=== PATIENT | female | born 2000 | race Caucasian/White ===

== ENCOUNTER 2021-05-17 07:29 | Inpatient (IN) ==
[2021-05-17] MEDS ORDERED: OXYTOCIN 30 UNITS/500 ML BAG IV PRN ×2 (07:39→07:41)
--- NOTE | 2021-05-17 07:48 | History & Physical Report ---
Date of Service May 17, 2021 Assessment & Plan (1) Encounter for induction of labor: Plan: 20 yo at EGA 39w1d by LMP, CHETAN 05/23 here for IOL. PNC of IUGR- EFW 14%, AC 9% on 05/06 -Admit to L&D -FHT Category 1 -Cuadra bulb placed 05/16 -Start pitocin -Epidural available on request -Expectant management, anticipate Admission and Anticipated Discharge Date Admission Date: May 17, 2021 History of Present Illness Chief Complaint: Induction of labor Primary Care Provider: NO PCP 20 yo at EGA 39w1d by LMP, CHETAN 05/23 here for IOL. +Good FM, +scant VB after cuadra bulb placed last night, denies LOF or ctns. Reports mild lower abdominal pressure, no nausea or vomiting. No headache, abdominal pain. Denies any complaints at present. States she had some anemia earlier in which resolved with iron supplements. Only takes PNV, no OTC medication. Has been attending OB appointments regularly. Flu vaccinated in 02/2021, was also COVID+ in 02/2021. PNC- IUGR that resolved with EFW 14% on 05/06 but AC of 9% OBHx- none GynHx- No STIs, regular cycles, menarche at 12 OB Labs: Blood Type B Positive 11/11/20 Antibody Screen NEGATIVE 11/11/20 Hemoglobin 10.0 g/dL (12.0-16.0) L 03/11/21 Hematocrit 28.9 % (37-47) L 03/11/21 Mean Corpuscular Volume 94.1 fL (80-100) 03/11/21 Platelet Count 270 K/uL (130-400) 03/11/21 Rubella IgG Antibody Immune (Immune) 11/11/20 Rapid Plasma Reagin Nonreactive (Nonreactive) 11/11/20 Hepatitis B Surface Antigen Neg (Neg) 11/11/20 HIV (1&2) Ab and P24 Ag, 4th Gener Neg (Neg) 11/11/20 Glucose 1 Hour 50 gm Load 132 mg/dl (70-130) H 12/09/20 OB Optional Labs: Chlamydia trachomatis RNA NOT DETECTED (NOT DETECTED) 11/11/20 Neisseria gonorrhoeae RNA NOT DETECTED (NOT DETECTED) 11/11/20 Thyroid Stimulating Hormone (TSH) 1.470 uIu/ml (0.300-4.500) 03/11/21 Allergies Allergy/AdvReac Type Severity Reaction Status Date / Time strawberry Allergy Hives Verified 05/16/21 19:28 Home Medications Medication Instructions Recorded Confirmed Type vit no.133-ferrous 1 tab PO DAILY 10/28/20 05/16/21 History fumarate 28 mg-folic acid 800 mcg tablet () Past Med/Surg History Medical History No significant medical problems Surgical History No significant past surgical history Family History Grandmother (Paternal) Pancreatic cancer Denies family history of Ovarian cancer Prostate cancer Breast cancer Colorectal cancer Social History Smoking Status: Never smoker Second Hand Exposure: No; Hx Alcohol Use: No Hx Substance Use: No Preferred Language: [place] Visual Impairment: No Limitations Hearing Ability: Normal Outside Rigger Required: No Beliefs That Will Affect Care: None marital status: marital status details: Rasta Child (22) [phone] Current Living Situation: Spouse Current Living Situation Comment: lives with . 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 Denies dyspnea, cough. Denies chest pain. Denies breast pain or discharge. Denies dysuria. Denies headache. Denies back pain. Physical Exam Physical Exam: General: Alert, oriented, no acute distress Cardiac: Regular rate and rhythm, normal S1, S2. No murmurs appreciated. Respiratory: Clear to auscultation b/l with good air flow entry, symmetric chest rise and fall. No wheezes or crackles. No increased work of breathing or accessory muscle use Abdomen: Gravid, soft, nontender. No guarding or CVA tenderness Skin: No rashes or lesions Extremities: Warm, dry, well-perfused with capillary refill <2s b/l. No lower extremity edema, erythema or swelling. Negative Janelle's sign b/l. Pelvic Exam per Dr. Monique Dilation: 3 Effacement: 75% Station: -2 FHR Baseline: 150 BPM Variability: Moderate Accelerations: Present Decelerations: Absent Supervising Physician Co-Signing Physician Notes Resident Physician Supervision Note: I interviewed and examined the patient. Discussed with Dr. Brennan and agree with findings and plan as documented in the note. Any exceptions or clarifications are listed here: 20 y/o G1 at 39 1/7 wga presents for IOL for FGR w/ AC 9%. Cuadra bulb fell out last evening, tolerated well. VSS, 3/75/-2 on exam. Will start pit, epidural PRN. GBS neg Documented By: Elsy Monique MD Resident Activity Tracking Resident Involvement: Resident Care Provided Care Provided: OB Delivery
[2021-05-17 08:02] LABS: Hematocrit (blood only) 28.7 % (37-47); Hemoglobin 9.5 g/dL (12.0-16.0); Mean Corpuscular Hemoglobin 29.2 pg (25-34); Mean Corpuscular Hgb Conc 33.1 g/dL (32-36); Mean Corpuscular Volume 88.3 fL (80-100); Mean Platelet Volume 10.4 fL (7.4-10.4); Platelet Count 207 K/uL (130-400); RDW Coefficient of Variation 13.6 % (11.5-14.5); RDW Standard Deviation 44.1 fL (36.4-46.3); Red Blood Count 3.25 M/uL (4.2-5.4); White Blood Count 9.34 K/uL (4.8-10.8)
[2021-05-17] MEDS: LACTATED RINGER'S 1,000 ML IV PRN ×2 (08:56→14:42)
--- NOTE | 2021-05-17 14:07 | Labor Progress Brief Note ---
Date of Service May 17, 2021 Subjective Feeling ctx a little more Assessment & Plan (1) Encounter for induction of labor: (2) Intrauterine growth restriction, antepartum: Plan: 20 y/o G1 at 39 1/7 wga presents for IOL for FGR VSS Fetus cat 1 Labor - pit at 14, now s/p arom, continue induction GBS neg Epidural PRN Admission and Anticipated Discharge Date Admission Date: May 17, 2021 Physical Exam Genitourinary: Manual OB Exam: + cervical dilation 4 cm, + cervical effacement 70%, + station -2 and + amniotic fluid (AROM clear) OB Exam Monitor Tracing: + external FHT monitor used, + external uterine monitor used (q3-4) and + category I (130/mod/+accel/-decel) Results & Data ([facility]) Vital Signs (Past 12 Hours) Vital Signs Temp Pulse Resp BP 05/17/21 13:15 113 H 123/84 05/17/21 11:05 92 H 120/67 05/17/21 10:05 93 H 127/77 05/17/21 09:03 98.2 F 136 H 20 119/83 05/17/21 08:14 98.2 F 93 H 20 132/87 Coding Level of Care Code None Diagnoses Encounter for induction of labor Z34.90 Intrauterine growth restriction, antepartum O36.5990
[2021-05-17] MEDS ORDERED: BUPIVACAINE 0.25% 30 ML VIAL ONE (14:36)
[2021-05-17] MEDS ORDERED: ePHEDrine sulfate 50 MG/ML AMP ONE (14:36)
[2021-05-17] MEDS ORDERED: fentaNYL citrate 100 MCG/2 ML VIAL ONE (14:36)
[2021-05-17] MEDS ORDERED: SODIUM CHLORIDE 0.9% INJ 10 ML VIAL ONE (14:36)
[2021-05-17] MEDS ORDERED: fentaNYL 2MCG/ML ROPIVACAINE 1.25MG/ML 100 ML BAG EPI ONE (14:37)
[2021-05-17] MEDS ORDERED: ONDANSETRON INJ 2 MG/ML 2 ML VIAL IV PRN (14:53)
[2021-05-17] MEDS ORDERED: fentaNYL 2MCG/ML ROPIVACAINE 1.25MG/ML 100 ML BAG EPI PRN (14:53)
[2021-05-17] MEDS ORDERED: diphenhydrAMINE 50 MG/ML VIAL IV PRN (14:53)
[2021-05-17] MEDS ORDERED: NALBUPHINE HCL INJ 10 MG/ML AMP IV PRN (14:53)
[2021-05-17] MEDS ORDERED: NALOXONE HCL 0.4 MG/1 ML VIAL/CARP IV PRN (14:53)
[2021-05-17] MEDS ORDERED: ePHEDrine sulfate 50 MG/ML AMP IV PRN (14:53)
[2021-05-17] MEDS ORDERED: NALOXONE HCL 1 MG in SODIUM CHLORIDE 0.9% 1000ML 1,000 ML IV PRN (14:53)
--- NOTE | 2021-05-17 15:01 | Anesthesiology Consultation ---
Date of Service May 17, 2021 Assessment & Plan Chart Review Chart Review: Patient NOT seen in Pre Admission Testing and Acceptable Risk for Labor Epidural Consults Requested none ASA ASA2 Proposed Anesthesia Anesthesia Type: Labor Epidural and CSE Risk / Benefits Reviewed With: PT / POA / Parent / Guardian, Accepts Plan and Informed Consent Obtained History Height/Weight Height: 5 ft 7 in Weight: 65.771 kg Allergies Allergy/AdvReac Type Severity Reaction Status Date / Time strawberry Allergy Hives Verified 05/16/21 19:28 Medications Home Medications Medication Instructions Recorded Confirmed Last Taken prenat.vits,arely,zpj-owtx-edcog 1 tab PO DAILY 05/17/21 05/17/21 05/16/21 21:00 Active Medications Generic Name Dose Route Start Last Admin Trade Name Freq PRN Reason Stop Dose Admin Lactated Ringer's 1,000 mls @ 125 mls/hr 05/17/21 07:39 05/17/21 14:42 Lr IV 05/19/21 07:38 999 mls/hr .Q8H PRN Administration L&D Protocol Protocol Oxytocin 30 units in 500 mls @ 14 mls/hr 05/17/21 07:41 05/17/21 13:18 Pitocin IV 05/19/21 07:40 0.84 units/hr .Q24H PRN 14 mls/hr Labor Induction/Augmentation Titration Protocol 0.84 UNITS/HR NPO Date Last Intake of Fluids: 05/17/21 Time Last Intake of Fluids: 14:00 Date Last Intake of Solids: 05/17/21 Time Last Intake of Solids: 08:00 Past Medical History Medical History No significant medical problems Exercise / Class Metabolic Activity II 4-5 Yardwork/Stairs/Walk up hill Past Family History Family History Grandmother (Paternal) Pancreatic cancer Denies family history of Ovarian cancer Prostate cancer Breast cancer Colorectal cancer Past Surgical History Surgical History No significant past surgical history Past Anesthesia History No Hx of Anesthesia Complications and No Family Hx of Anesthesia Complications History of PONV No Hx of PONV and History of PONV Social History Smoking Status: Never smoker Hx Alcohol Use: No Hx Substance Use: No substance use type: does not use Review of Systems no chest pain or sob Physical Exam Vital Signs Last Vital Signs Temp 36.8 C 05/17/21 09:03 Pulse 110 H 05/17/21 14:58 Resp 20 05/17/21 09:03 BP 123/84 05/17/21 13:15 Pulse Ox 99 05/17/21 14:58 ENMT Mouth: no TMJ abnormality Thyromental Distance: > or= 3.5 Finger Breadths Mallampati Class: II Neck normal visual inspection Respiratory normal respiratory effort Auscultation: lungs clear to auscultation bilaterally Cardiovascular Rate/Rhythm: regular rate and regular rhythm Musculoskeletal Spine: normal cervical ROM Neurologic moves all extremities Psychiatric Orientation: alert and oriented x 3 Testing Laboratory Results 05/17/21 07:46
--- NOTE | 2021-05-17 17:38 | Delivery Summary ---
Vaginal Delivery Summary Date of Service May 17, 2021 Vaginal Delivery Summary and 2nd Degree LAC PREOPERATIVE DIAGNOSIS: 1. Single intrauterine at 39 1/7 wga 2. growth restriction 3. Resolved polyhydramnios POSTOPERATIVE DIAGNOSIS: 1. Single intrauterine at 39 1/7 wga 2. growth restriction 3. Resolved polyhydramnios 4. Delivered PROCEDURE: 1. Normal spontaneous vaginal delivery. SURGEON: Elsy Monique MD ANESTHESIA: Epidural. ESTIMATED BLOOD LOSS: 300 mL FLUIDS: Continuous LR. URINE OUTPUT: None. COMPLICATIONS: None. CONDITION: Stable. INDICATIONS: 20 y/o G1 at 39 1/7 wga presented for IOL for FGR. has been complicated by FGR that initially resolved and then returned at last growth US on 05/06 showing AC 9%. Also had polyhydramnios earlier in but that resolved. She received a cuadra bulb last evening which fell out. This morning, she was 3cm and started on pitocin. She underwent artificial rupture of membranes at 4cm and received an epidural for pain control. Less than 3 hours after arom she progressed to 10cm and desired to push. FINDINGS: A viable male infant, weight pending with Apgars of 8 and 9 at 1 and 5 minutes respectively. SPECIMEN: Cord blood OPERATIVE REPORT: The patient progressed to 10 cm, 100% effaced and +2 station, pushed over intact perineum with anesthesia to deliver a viable male infant, weight and Apgars as above. Head of delivered in KENYA position with left hand at the base of the chin. No nuchal cord was present. Body and shoulders were delivered without difficulty. was delivered to maternal abdomen and nursing staff. Delayed cord clamping was performed for 60 seconds. Cord was clamped and cut. Cord blood was obtained. Placenta delivered spontaneously intact with 3-vessel cord. IV oxytocin and fundal massage were given for excellent hemostasis. Vagina, cervix, perineum, and placenta were inspected. A second degree laceration and bilateral labials were noted and repaired in the usual fashion using 3-0 and 4-0 vicryl respectively. Sponge and needle counts correct x2. No sponges were left behind. Mother and stable in immediate period[place] [facility] [place] Vaginal Delivery Codes: 05488 global code for the antepartum, delivery, and post- Delivery Type Details: and 2nd Degree LAC
[2021-05-17] MEDS ORDERED: ACETAMINOPHEN 325 MG TAB PO PRN (17:45)
[2021-05-17] MEDS ORDERED: OXYTOCIN 30 UNITS/500 ML BAG IV ONE (17:45)
[2021-05-17] MEDS ORDERED: BENZOCAINE 20% AER SPR 82.5 GM CAN EXT PRN (17:45)
[2021-05-17] MEDS ORDERED: DIPHTHERIA/TETANUS/PERTUSSIS 0.5 ML SYR/VIAL IM ONE (17:45)
[2021-05-17] MEDS ORDERED: HYDROCORTISONE ACETATE 25 MG SUPP PR PRN (17:45)
[2021-05-17] MEDS ORDERED: bisacodyL 10 MG SUPP PR PRN (17:45)
--- NOTE | 2021-05-17 18:17 | Anesthesia Procedure Note ---
Date of Service May 17, 2021 Anesthesia Post Epidural Note Vital Signs Vital Signs: Temp Pulse Resp BP Pulse Ox 36.8 C 100 H 20 122/63 98 05/17/21 09:03 05/17/21 18:07 05/17/21 09:03 05/17/21 18:07 05/17/21 17:13 Notes Mental Status: alert / awake / arousable and participated in evaluation Nausea / Vomiting: adequately controlled Pain: adequately controlled Airway Patency, RR, SpO2: stable & adequate BP & HR: stable & adequate Hydration State: stable & adequate Neuraxial Anesthesia: was administered and sensory block is resolving Anesthetic Complications: no major complications apparent and Pt Satisfied with anesthetic care Epidural: Removed without complications and With tip intact
[2021-05-17] MEDS: IBUPROFEN 600 MG TAB PO PRN (20:21)
[2021-05-17] MEDS: DOCUSATE SODIUM 100 MG CAP PO SCH (20:21)
[2021-05-18] MEDS: IBUPROFEN 600 MG TAB PO PRN ×2 (02:29→11:33)
--- NOTE | 2021-05-18 05:11 | Obstetrical Progress Note ---
Date of Service <Meredith Brennan MD - Last Filed: 05/18/21 06:54> May 18, 2021 Assessment & Plan <Meredith Brennan MD - Last Filed: 05/18/21 06:54> (1) Encounter for induction of labor: 20 yo now PPD1 from at 39wk1d -Continue routine care, july dc today per pt preference after 24 hour period complete around 17:00 -Vitals reviewed- HDS, afebrile -Blood type B+, GBS-, Rubella immune -Encourage ambulation -Pain control with ibuprofen, acetaminophen PRN -Hgb 9.5 on 05/17, asymptomatic -F/u in 6 weeks with OB <Elsy Monique MD - Last Filed: 05/18/21 07:51> (1) Encounter for induction of labor: Subjective <Meredith Brennan MD - Last Filed: 05/18/21 06:54> Ambulation: ambulating normally Voiding: no voiding problems Passing Gas:: Yes Diet Tolerance:: regular diet Lochia:: Small Feeding Type:: bottle feeding Current Pain Level(1-10): 0 Pt doing well overall, no acute complaints or distress. Pain well controlled with medication. Has not eaten much solid food yet, tolerating liquids well. Review of Systems Denies fever/chills. Denies dyspnea, cough. Denies chest pain. Denies breast pain or discharge. Denies dysuria. Denies headache. Denies back pain. Physical Exam <Meredith Brennan MD - Last Filed: 05/18/21 06:54> General: Alert, oriented, no acute distress Cardiac: Regular rate and rhythm, normal S1, S2. No murmurs appreciated. Respiratory: Clear to auscultation b/l with good air flow entry, symmetric chest rise and fall. No wheezes or crackles. No increased work of breathing or accessory muscle use Abdomen: Soft, nontender, nondistended. Fundus firm and palpable at 2 cm below umbilicus. No guarding or rebound. Skin: No rashes or lesions Extremities: Warm, dry, well-perfused with capillary refill <2s b/l. No lower extremity edema, erythema or swelling. Negative Janelle's sign b/l. Results & Data ([facility]) <Meredith Brennan MD - Last Filed: 05/18/21 06:54> Vital Signs (Past 12 Hours) Vital Signs Temp Pulse Pulse Resp BP BP Pulse Ox 05/18/21 03:05 36.5 C 72 16 114/75 98 05/17/21 23:25 37.0 C 82 16 119/76 96 05/17/21 20:00 36.8 C 95 H 16 121/75 99 05/17/21 19:40 36.8 C 20 05/17/21 19:37 126 H 116/77 05/17/21 19:22 117 H 122/78 05/17/21 19:10 18 05/17/21 19:07 97 H 118/71 05/17/21 18:52 110 H 148/85 H 05/17/21 18:38 96 H 118/63 05/17/21 18:22 93 H 122/71 05/17/21 18:07 100 H 122/63 05/17/21 17:52 113 H 116/73 05/17/21 17:37 105 H 108/67 05/17/21 17:13 103 H 98 05/17/21 17:11 113 H 138/74 <Elsy Monique MD - Last Filed: 05/18/21 07:51> Co-Signing Physician Notes Resident Physician Supervision Note: I interviewed and examined the patient. Discussed with Dr. Brennan and agree with findings and plan as documented in the note. Any exceptions or clarifications are listed here: 20 y/o PP1 s/p after IOL for FGR, doing well. VSS, exam benign and wnl. Continue routine pp care, likely desires d/c tomorrow Documented By: Elsy Monique MD Resident Activity Tracking <Meredith Brennan MD - Last Filed: 05/18/21 06:54> Resident Involvement: Resident Care Provided Care Provided: OB Delivery
[2021-05-18 06:57] LABS: Hematocrit (blood only) 26.9 % (37-47); Mean Corpuscular Hemoglobin 29.7 pg (25-34); Mean Corpuscular Hgb Conc 33.5 g/dL (32-36); Mean Corpuscular Volume 88.8 fL (80-100); Mean Platelet Volume 10.6 fL (7.4-10.4); Platelet Count 202 K/uL (130-400); RDW Coefficient of Variation 13.8 % (11.5-14.5); RDW Standard Deviation 44.1 fL (36.4-46.3); Red Blood Count 3.03 M/uL (4.2-5.4); White Blood Count 11.76 K/uL (4.8-10.8)
[2021-05-18] MEDS: DOCUSATE SODIUM 100 MG CAP PO SCH ×2 (07:53→20:34)
[2021-05-18] MEDS: PRENATAL VITAMIN 1 TAB PO SCH (07:53)
[2021-05-18] MEDS: FERROUS SULFATE 325 MG TAB PO SCH ×2 (08:03→16:32)
[2021-05-18] MEDS ORDERED: NON-FORMULARY MEDICATION (Prenat.Vits,Cal,Min-Iron-Folic Tablet) PO SCH (09:00)
[2021-05-18] MEDS ORDERED: bisacodyL 5 MG TABEC PO SCH (20:00)
[2021-05-19 07:02] LABS: Hematocrit (blood only) 25.8 % (37-47); Hemoglobin 8.5 g/dL (12.0-16.0)
[2021-05-19] MEDS: DOCUSATE SODIUM 100 MG CAP PO SCH (07:29)
[2021-05-19] MEDS: FERROUS SULFATE 325 MG TAB PO SCH (07:29)
[2021-05-19] MEDS: PRENATAL VITAMIN 1 TAB PO SCH (07:29)
--- NOTE | 2021-05-19 07:29 | Obstetrical Progress Note ---
Date of Service <Meredith Brennan MD - Last Filed: 05/19/21 07:29> May 19, 2021 Assessment & Plan <Meredith Brennan MD - Last Filed: 05/19/21 07:29> (1) Encounter for induction of labor: 20 yo now PPD2 from at 39wk1d -Continue routine care, d/c today -Vitals reviewed- HDS, afebrile -Blood type B+, GBS-, Rubella immune -Pain control with ibuprofen, acetaminophen PRN -Hgb 8.5 today, asymptomatic -F/u in 6 weeks with OB <Raul Wiley MD - Last Filed: 05/20/21 17:19> (1) Encounter for induction of labor: Subjective <Meredith Brennan MD - Last Filed: 05/19/21 07:29> Ambulation: ambulating normally Voiding: no voiding problems Passing Gas:: Yes Diet Tolerance:: regular diet Lochia:: Small Feeding Type:: bottle feeding Current Pain Level(1-10): 0 Pt doing well overall, no acute complaints or distress. Pain well controlled with medication. Bleeding improving. Would like to go home today. Review of Systems Denies fever/chills. Denies dyspnea, cough. Denies chest pain. Denies breast pain or discharge. Denies dysuria. Denies headache. Denies back pain. Physical Exam <Meredith Brennan MD - Last Filed: 05/19/21 07:29> Exam per Dr. Wiley Results & Data ([facility]) <Meredith Brennan MD - Last Filed: 05/19/21 07:29> Vital Signs (Past 12 Hours) Vital Signs Temp Pulse Resp BP Pulse Ox 05/19/21 04:00 36.7 C 88 18 111/77 98 05/19/21 00:00 37.3 C 88 18 128/70 98 05/18/21 19:30 36.6 C 93 H 18 115/72 98 <Raul Wiley MD - Last Filed: 05/20/21 17:19> Co-Signing Physician Notes Patient seen and evaluated and agree with the above findings and plan. Stable for discharge Resident Activity Tracking <Meredith Brennan MD - Last Filed: 05/19/21 07:29> Resident Involvement: Resident Care Provided Care Provided: OB Delivery
== END 2021-05-19 11:35 | disposition home or self-care (01) | DRG 807 ==
LOC: 4S1 07:29 → 4S2 20:02